=== PATIENT | female | born 1940 | race Caucasian/White ===

== ENCOUNTER 2018-06-24 21:00 | Inpatient (IN) | payer MEDICARE ==
[~2018-06-24] VITALS: Ht 165.1 cm; Wt 67.6 kg
--- NOTE | ~2018-06-24 | DS ---
PATIENT:STEFANIE CROSS :44 MEDICAL RECORD: [id number] DISCHARGE SUMMARY ADMISSION DATE: 06/24/18 DISCHARGE DATE: 07/10/18 HOSPITAL COURSE: The patient is a 77-year-old female who had been living at home with her and because of his inability to take care of her, had transferred her to a [facility] where she spent approximately 1 day and they had gotten so aggressive that a transfer of care was needed here. The patient is alert and oriented times zero. She is very infrequently spoken. She at first was quite resistant to care, especially aggressive secondary to her confusion. As the hospitalization has progressed, the patient has become less aggressive with care. She is still certainly very confused and nursing has noted that she does much better with soft tone and slower redirection, any sudden or abrupt tone changes or orders are not taken as well by this patient secondary to her extreme confusion. On the day of discharge, the patient had been nonaggressive for days. When asked her if she was ready to leave, she did nod her head and looked at me but did not respond otherwise. 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 Her discharge meds include perphenazine 4 mg b.i.d., trazodone 50 mg at bedtime, Megace 625 mg every day, Aricept 5 mg at bedtime, vitamin B12 1000 mg daily, vitamin D 5000 daily, aspirin 81 mg a day, Synthroid 112 mcg a day at 6 a.m. She is being discharged back to [facility] with follow up with their physicians at the facility. Case discussed with nursing. Chart was reviewed and the patient interviewed before discharge. TRANSINT:[id number] Voice Confirmation ID: [id number] DOCUMENT ID: [id number] ADILIA JACOBS MD CC: [id number] DICTATION DATE: 07/10/18 1157 BILLING ASSOCIATE: 07/11/18 0102 DIS IN 07/10/18 [facility] [address] [place] [address]
--- NOTE | ~2018-06-24 | PN ---
PATIENT:STEFANIE JONES MEDICAL RECORD: [id number] LOCATION:[facility] [address] ADMISSION DATE: 06/24/18 PROGRESS NOTE DATE OF SERVICE: 07/09/2018 SUBJECTIVE: Ms. Jones is a 77-year-old female with advanced major neurocognitive disorder, probable Alzheimer's type, who had become aggressive after 1 day in a new facility from home. The patient's behavior at first was consistent with this, but over the course of treatment regimen and her stay here, she has become much less combative, redirectable with ADLs. She has only spoken directly to me once. She does look at me, then generally looks away with any continued attempted interview. Nursing report is similar. They say that she is mainly redirectable, tone is very important in helping her with her ADLs. Plan is to go back to [facility] tomorrow. She slept 7 hours. Did not eat breakfast, but ate 75% lunch and 75% of dinner and last bowel movement on the . OBJECTIVE: LATEST VITAL SIGNS: 98.2, 81, 24, 112/61 and 97%. Her weights have both been at 149. ASSESSMENT: Unchanged. PLAN: Anticipate discharge back to [facility] tomorrow. Discharge orders completed. Case discussed with nursing. Chart was reviewed and the patient interviewed. TRANSINT:[id number] Voice Confirmation ID: [id number] DOCUMENT ID: [id number] ADILIA JACOBS MD CC: [id number] DICTATION DATE: 07/09/18 174 PROGRAM INSTRUCTOR: 07/10/18 0932 ADM IN [place] [id number] [place] [address]
--- NOTE | ~2018-06-24 | PN ---
PATIENT:STEFANIE CROSS MEDICAL RECORD: [id number] LOCATION:[facility] [address] ADMISSION DATE: 06/24/18 PROGRESS NOTE DATE OF SERVICE: 07/03/2018 SUBJECTIVE: The patient's case was discussed with staff. She has no new complaint. OBJECTIVE: The patient is in good behavioral control. She has not been aggressive. She is eating well, but not sleeping very adequately. Unfortunately, her dementia is very advanced. I did start her on some trazodone yesterday and I am going to increase the dose of that today since it was not very helpful. TRANSINT:[id number] Voice Confirmation ID: [id number] DOCUMENT ID: [id number] MARY ZUÑIGA MD CC: [id number] DICTATION DATE: 07/03/18 1526 ORDER DEPARTMENT SUPERVISOR: 07/03/18 193 ADM IN [facility] [address] [place] [address]
--- NOTE | ~2018-06-24 | PN ---
PATIENT:STEFANIE JONES MEDICAL RECORD: [id number] LOCATION:[facility] [address] ADMISSION DATE: 06/24/18 PROGRESS NOTE DATE OF SERVICE: 07/08/2018 SUBJECTIVE: Ms. Jones is a 77-year-old female who had been transferred to a assisted by her secondary to her advanced dementia, but the patient became aggressive and agitated while there. Within a day, she was transferred here. Her basic resistance to care has been declining. She still has very limited interview, did not directly talk to me today, although she did by vision acknowledge my presence. She has not been aggressive or agitated according to social work staff with whom I talked as well as nursing. We are waiting on a return of Francine. The patient slept 6 hours, eating 100, 100, and 75. Last bowel movement was on the 26th. Her vitals are 98.2, 76, 17, 102/60 and pulse ox of 99%. ASSESSMENT: Unchanged. PLAN: Continue current treatment regimen and await for Success and return to nursing facility. Case discussed with nursing. Chart reviewed. The patient interviewed. TRANSINT:[id number] Voice Confirmation ID: [id number] DOCUMENT ID: [id number] ADILIA JACOBS MD CC: [id number] DICTATION DATE: 07/08/18 170 DICTAPHONE OPERATOR: 07/09/18 0025 ADM IN [facility] [address] [place] [id number]
[2018-06-24] MEDS ORDERED: ASPIRIN81 MG PO (22:24)
[2018-06-24] MEDS ORDERED: SYNTHROID100 MCG PO (22:24)
[2018-06-24] MEDS ORDERED: ATIVAN2 MG PO (22:26)
--- NOTE | 2018-06-24 23:55 | NUR ---
NEW ADMIT TO DOCTOR ZUÑIGA ON [facility] FROM [place] FOR AGGRESSION. PATIENT TRANSPORTED TO [facility] VIA EMS ON A STRETCHER. UPON ARRIVAL, PATIENT WAS ANXIOUS, PACING, YELLING, AND EXIT SEEKING. PRN ATIVAN 0.5 MG IM GIVEN FOR ANXIETY. PATIENT REFUSED ADMISSION VS, WEIGHT, AND EKG. PATIENT REPEATEDLY TAKES OFF ARM BANDS. ATTEMPTED TO CALL SPOUSE WITHOUT SUCCESS. MESSAGE LEFT TO RETURN CALL.
--- NOTE | 2018-06-25 03:30 | NUR ---
PATIENT CONTINUES TO BECOME MORE ANXIOUS AND AGITATED. CONTINUES TO PACE, WANDER IN ROOMS OF OTHER PATIENTS, AND EXIT SEEK. PATIENT BECAME COMBATIVE WITH STAFF. UNABLE TO REDIRECT. PRN ATIVAN 0.5 MG IM GIVEN FOR INCREASING ANXIETY AND PRN HALDOL 2 MG IM GIVEN FOR PSYCHOTIC UNSAFE BEHAVIOR.
[2018-06-25 07:43] LABS: BASOPHILS 0.3 % (0-2); EOSINOPHILS 0.9 % (0-7); HEMATOCRIT 40.2 % (36.0-48.0); HEMOGLOBIN 13.4 g/dL (12-16); IMMATURE GRANULOCYTES 0.3 % (0-5); LYMPHOCYTES 20.9 % (15-50); MCH 31.8 pg (26.0-34.0); MCHC 33.3 g/dL (31.0-37.0); MCV 95.5 fL (80.0-100.0); MEAN PLATELET VOLUME 11.5 fL (7.4-10.4); MONOCYTES 13.5 % (2-11); NEUTROPHILS 64.1 % (40-80); PLATELET COUNT 224 10x3/uL (130-400); RBC 4.21 10x6/uL (4.00-5.40); RDW 14.5 % (11.5-14.5); WBC 7.5 10x3/uL (4.8-10.8)
--- NOTE | 2018-06-25 07:45 | NUR ---
PT IS AWAKE AND ALERT TO PERSON. PT WANDERS THE UNIT WITH STAFF SUPERVISION. PT CAN BECOME AGGRESSIVE WITH STAFF WITH REDIRECTION AT TIMES. CALM AND COOPERATIVE WITH ASSESSMENT AT THIS MOMENT. REDIRECT AND REORIENT NEEDED. FALL PRECAUTIONS IN PLACE. WILL CPOC.
[2018-06-25 08:16] LABS: BILIRUBIN - TOTAL 0.53 mg/dL (0.2-1.3); CALCIUM 9.3 mg/dL (8.5-10.1); CARBON DIOXIDE 28.6 mmol/L (21.0-32.0); CHOL - HDL RATIO 2.9 ratio (2.3-4.1); CREATININE - SERUM 0.8 mg/dL (0.6-1.3); LDL-HDL RATIO 1.8 ratio (1.5-3.5); POTASSIUM - SERUM 3.6 mmol/L (3.5-5.1); PROTEIN - SERUM 7.1 g/dL (6.4-8.2); THYROID STIMULATING HORMONE 9.49 uIU/mL (0.36-3.74)
[2018-06-25 08:25] VITALS: BP 98/38
--- NOTE | 2018-06-25 18:00 | NUR ---
PT REMOVED YELLOW COLORED RING AND ALLOWED STAFF TO LOCK UO IN NARC BOX.
[2018-06-25 20:00] VITALS: BP 118/53
--- NOTE | 2018-06-25 20:39 | NUR ---
RECEIVED IN DAYROOM. COMBATIVE. BITING, HITTING, KICKING, AND SCRATCHING STAFF. UNABLE TO BE REDIRECTED. PRN ATIVAN 0.5 MG IM GIVEN FOR ANXIETY AND PRN HALDOL 2 MG IM GIVEN FOR PSYCHOTIC UNSAFE BEHAVIOR. PRN EFFECTIVE. PATIENT CALM AND COOPERATIVE AT THIS TIME. PATIENT RESTING IN BED WITH EYES OPEN. CONTINUE PLAN OF CARE.
[2018-06-25 22:47] VITALS: BP 118/53
[2018-06-26 06:14] LABS: VITAMIN D 25 HYDROXY 25.3 ng/mL (30.0-100.0)
[2018-06-26 07:24] LABS: RAPID PLASMA REAGIN Non Reactive (Non Reactive)
--- NOTE | 2018-06-26 07:46 | NUR ---
REC'D PT SITTING IN CHAIR. RESP EVEN AND NONLABORED. NO ACUTE DISTRESS NOTED. PT DOES NOT SPEAK MUCH TO NURSE. NO BEHAVIORS NOTED AT THIS TIME. CONFUSION NOTED. REDIRECT AND REORIENT NEEDED. WILL CONT TO MONITOR Q 15 MINS FOR SAFETY.
--- NOTE | 2018-06-26 10:02 | NUR ---
SPOKE WITH PT THIS AM. HE INQUIRED IF HE SHOULD VISIT PT FOR VISITATION. NURSE EXPLAINED THE UNIT ASKED FOR SEVERAL DAYS FOR PT TO SETTILE IN BEFORE VISITORS VISIT PT. VOICED UNDERSTANDING OF VISITATION RULES.
[2018-06-26 12:51] VITALS: BP 118/68
--- NOTE | 2018-06-26 14:19 | PSY ---
PATIENT NAME:STEFANIE CROSS MEDICAL RECORD: [id number] : 44 LOCATION:[facility] [address] ADMISSION DATE: 06/24/18 ACCOUNT: [id number] PSYCHIATRIC EVALUATION DATE OF EVALUATION: 06/25/18 IDENTIFYING DATA: The patient is 77 years old and she [facility] on a [facility] basis. CHIEF COMPLAINT: Aggression. HISTORY OF PRESENT ILLNESS: The patient was admitted to the hospital yesterday and that was [facility] the [facility]. She apparently was very agitated, yelling and exit seeking. She also apparently grabbed one of the nurse's aides and bent her thumb back very far. I am not sure if she broke it. She was uncooperative with any kind of assessment at the [facility] and they felt they could not accept her or manage her until these behaviors were addressed. On interview, the patient is polite, cooperative with me, but it is very clear she has an advanced dementia and she is giving me almost nothing in the way of useful information. She denies that she would seek to harm herself or others. She does not know where she is. She is only oriented to person. PAST MEDICAL HISTORY: Significant for hypothyroidism and hyperlipidemia. PAST PSYCHIATRIC HISTORY: Significant for an established diagnosis of dementia, but it is unknown when that diagnosis was made or how or if she has even received any treatment for it. FAMILY HISTORY: Unknown. ALLERGIES: SULFA AND PENICILLIN. CURRENT MEDICATIONS: Include Synthroid and aspirin. SOCIAL HISTORY: The patient has no history of drug, alcohol or tobacco usage. She is and does have adult children who are involved with her care. MENTAL STATUS EXAMINATION: The patient is awake, alert and oriented to person only. Her mood is flat. Her affect is constricted. Thought processes are circumstantial. Memory, concentration, and abstraction abilities are severely impaired and she denies that she would seek to harm herself or others as well as psychotic symptoms. ASSETS: Supportive family members. LIABILITIES: Limited insight. DIAGNOSTIC IMPRESSION: AXIS I: Senile dementia of the Alzheimer's type with behavioral disturbances. AXIS II: None. AXIS III: Hypothyroidism, hyperlipidemia. AXIS IV: Moderate. AXIS V: Global assessment of functioning is 30. PLAN: At this time, the patient is admitted to the hospital secondary to agitated behavior associated with a dementing illness. She will be treated with both mood stabilizing and memory enhancing medications. Her long-term prognosis is guarded. TRANSINT:[id number] Voice Confirmation ID: [id number] DOCUMENT ID: [id number] MARY ZUÑIGA MD at 1419 CC: [id number] DICTATION DATE: 06/25/18 1423 AIRBORNE WE[employer]ONS TECHNICAL MANAGER: 06/25/18 1439 ADM IN [place] [id number] [place] [id number]
[2018-06-26 18:07] LABS: FOLATE (FOLIC ACID) - SERUM 16.3 ng/mL (>3.0)
--- NOTE | 2018-06-26 18:08 | NUR ---
PT WANDERING AT THIS TIME. SAFETY IN VIEW OF STAFF. RESP EVEN AND NONLABORED. NO ACUTE DISTRESS NOTED AT THIS TIME. PT DOES NOT SPEAK ALOT WITH STAFF. PT ATE 100% OF ALL MEALS. MED COMPLIANT. NO COMBATIVE BEHAVIOR NOTED AT THIS TIME. WILL CONT PLAN OF CARE. WILL CONT TO MONITOR Q 15 MINS FOR SAFETY.
[2018-06-26 20:36] VITALS: BP 100/66
--- NOTE | 2018-06-27 03:13 | NUR ---
B) Patient is alert and oriented to self, confused and disoriented, not talking today, I) Administered scheduled medications as ordered, monitored for safety and for needs, encouraged her to speak, R) Medication compliant, difficulty fall asleep, P) Continue plan of care.
--- NOTE | 2018-06-27 05:15 | PN ---
PATIENT:STEFANIE CROSS MEDICAL RECORD: [id number] LOCATION:[facility] [address] ADMISSION DATE: 06/24/18 PROGRESS NOTE DATE OF SERVICE: 06/26/2018 SUBJECTIVE: The patient's case was discussed with staff. She has no new complaint. OBJECTIVE: The patient is nonverbal today. She was quite confused and was giving me virtually no history yesterday. I spoke with one of the staff members about this and she told me that the patient's indicated that she does this from time to time. The patient was agitated last night. She did receive Haldol and Ativan for the agitation. ASSESSMENT: Senile dementia of the Alzheimer's type with behavioral disturbances. PLAN: Current medicines and therapies have been reviewed, both will be maintained. Long-term prognosis is guarded. TRANSINT:[id number] Voice Confirmation ID: [id number] DOCUMENT ID: [id number] MARY ZUÑIGA MD at 0515 CC: [id number] DICTATION DATE: 06/26/18 165 VITAMIN MANAGER: 06/26/[address] [facility] [address] [place] [address]
[2018-06-27 08:01] VITALS: BP 123/66
--- NOTE | 2018-06-27 08:05 | NUR ---
REC'D PT SITTING IN CHAIR WITH EYES OPEN. RESP EVEN AND NONLABORED. NO ACUTE DISTRESS NOTED. PT DOES NOT TALK TO STAFF MUCH. NO AGGRESSIVE BEHAVIOR NOTED AT THIS TIME. PT AMBULATES. CONFUSION NOTED. DOES NOT ANSWER QUESTIONS. REORIENT AND REDIRECT NEEDED. WILL CONT PLAN OF CARE. WILL CONT TO MONITOR Q 15 MINS FOR SAFETY.
[2018-06-27 09:02] VITALS: BP 123/66
--- NOTE | 2018-06-27 17:23 | NUR ---
The patient's spouse called and wanted to know how she is doing and what meds she is on. Let him know she is confuded, not aggressive. Told him she is on Perphenazine and Aricept. He said "Oh, I tried the Arecept a couple of years ago." Asked him how long he tried it. He said "Oh, about a month, it didn't do any good." Explained that the recommendation is six months to a year and then of course if there is no difference then discontinue the medication. He also wanted to know if she needed anything. Let him know that I will look and he can call us back. He said "Does she have anything to sleep in?" Let him know we have hospital gowns and scrubs.
--- NOTE | 2018-06-27 18:06 | NUR ---
PT IS WANDERING. CONFUSION AND DISORIENTED. PT IS HARD TO REDIRECT AT TIMES ATTEMPTING TO HIT AT STAFF DURING REDIRECTION. RESP EVEN AND NONLABORED. NO ACUTE DISTRESS NOTED. PT WILL SIT FOR A MINUTE AND THEN GET UP A WANDER. PT TOOK SOCKS OFF AND REFUSED TO ALLOW STAFF TO REPLACE. REORIENT AND REDIRECT NEEDED. PT 100% OF MEALS. MED COMPLIANT. TOLERATED VITAMINS WELL. WILL CONT PLAN OF CARE. WILL CONT TO MONITOR Q 15 MINS FOR SAFETY.
[2018-06-27 19:24] VITALS: BP 123/57
--- NOTE | 2018-06-27 20:25 | NUR ---
B) Patient is alert and oriented to self, very confused and non verbal, wanders and picks at things on the floor, I) Administered scheduled medications as ordered, monitored for safety, R) Medication compliant, restless, P) Continue plan of care.
--- NOTE | 2018-06-28 07:45 | NUR ---
REC'D PT WANDERING HALLWAY AND PULLING AT DOORS. REDIRECT AND REORIENT NEEDED. PT IS NONVERBAL MOST TIMES. RESP EVEN AND NONLABORED. NO ACUTE DISTRESS NOTED. CONFUSED AND WANDERING. PLESANT WITH STAFF AND PEERS WITH A LARGE SMILE ON HER FACE. WILL CONT PLAN OF CARE. WILL CONT TO MONITOR Q 15 MINS FOR SAFETY.
[2018-06-28 09:02] VITALS: BP 144/80
--- NOTE | 2018-06-28 18:18 | NUR ---
PT WANDERING CONFUSED ALERT AND ORIENTED TO SELF. RESP EVEN AND NONLABORED. NO ACUTE DISTRESS NOTED. NON-VERBAL MOST IF THE TIME. PT DID GIVE NURSE A HUGE HUG AND SMILE THIS MORNING. PT IS EASIER TO REDIRECT. REDIRECT AND REORIENT AT THIS TIME. PT AMBULATES AND WANDERS INTO AREA. PT HAD VISITOR THIS SHIFT. TOELRATED WELL. MED COMPLIANT. UNABLE TO OBTAIN U/A THIS SHIFT. WILL CONT PLAN OF CARE.
--- NOTE | 2018-06-28 18:45 | PN ---
PATIENT:STEFANIE CROSS MEDICAL RECORD: [id number] LOCATION:[facility] [address] ADMISSION DATE: 06/24/18 PROGRESS NOTE DATE OF SERVICE: 06/27/2018 SUBJECTIVE: The patient's case was discussed with staff. She has no new complaint. OBJECTIVE: The patient is severely impaired cognitively and clearly understands little of what is going on around her. She can follow basic directions, but she really does not give any information that is helpful or useful. She is taking her medicines here. I am not sure how well she was taking them before she came here, but she does have an elevated TSH, which needs to be addressed. I am going to leave that to Dr. Goodwin. Her long-term prognosis is guarded. I am going to start her on a low dose of Aricept. TRANSINT:[id number] Voice Confirmation ID: [id number] DOCUMENT ID: [id number] MARY ZUÑIGA MD at 1845 CC: [id number] DICTATION DATE: 06/27/18527 GREEN ENERGY MARKETING ANALYST: 06/27/18 0856 ADM IN [facility] [address] [place] [address]
[2018-06-28 19:27] VITALS: BP 110/89
--- NOTE | 2018-06-28 20:29 | NUR ---
PATIENT IS EXTREMELY CONFUSED, HARD TO REDIRECT, CAN NOT OR DOES NOT MAKE NEEDS KNOWN, WANDERS A LOT, COMPLIANT WITH MEDS, WILL FOLLOW POC
--- NOTE | 2018-06-29 00:10 | NUR ---
PATIENT RECEIVED HALDOL/ATIVAN, PT. STOPPED WANDERING AND STARTED PACING AND MORE ACTIVELY SEEKING EXITS. AGGRESSIVE WITH TECH, HITTING AND SCRATCHING. PICKING UP THE GOWNS FROM NURSES STATION AND SET THEM ON THE FLOOR. COULD NOT REDIRECT. WILL MONITOR
--- NOTE | 2018-06-29 07:45 | NUR ---
REC'D PT SITTING IN HALLWAY WITH PEERS. NO ACUTE DISTRESS NOTED. RESP EVEN AND NONLABORED. CONFUSION NOTED. PT SPEAKS TO STAFF VERY LITTLE. WANDERS AT TIMES. CHAIR ALARM IN PLACE AND ACTIVE. WILL CONT TO MONITOR Q 15 MINS FOR SAFETY. WILL CONT PLAN OF CARE.
[2018-06-29 08:13] VITALS: BP 130/94
[2018-06-29 08:27] VITALS: BP 98/64
--- NOTE | 2018-06-29 09:48 | PN ---
PATIENT:TSEFANIE CROSS MEDICAL RECORD: [id number] LOCATION:[facility] [address] ADMISSION DATE: 06/24/18 PROGRESS NOTE DATE OF SERVICE: 06/28/2018 SUBJECTIVE: The patient's case was discussed with staff. She has no new complaint. OBJECTIVE: The patient is severely impaired cognitively and her dementia is quite advanced. She is minimally participating in activities, although she does follow directions reasonably well. She has not been seriously aggressive, but at times she does become pretty agitated when being redirected. ASSESSMENT: No change in diagnoses. PLAN: Current medicines have been reviewed and will be maintained. The patient has had an increase in her Synthroid since admission and hopefully this will help correct her elevated TSH. TRANSINT:[id number] Voice Confirmation ID: [id number] DOCUMENT ID: [id number] MARY ZUÑIGA MD at 0948 CC: [id number] DICTATION DATE: 06/28/18 185 EMBOSSING TOOL SETTER: 06/29/18 0443 ADM IN [facility] [address] [place] [address]
[2018-06-29 16:31] LABS: COLOR YELLOW (YELLOW)
[2018-06-29 16:32] LABS: APPEARANCE SL CLDY (CLEAR); BILIRUBIN NEGATIVE (NEGATIVE); GLUCOSE NEGATIVE (NEGATIVE); KETONE NEGATIVE (NEGATIVE); NITRITE NEGATIVE (NEGATIVE); PROTEIN NEGATIVE (NEGATIVE); UROBILINOGEN NORMAL (NORMAL)
--- NOTE | 2018-06-29 18:22 | NUR ---
PT WANDERING HALLWAY AT THIS TIME. NO DISTRESS NOTED. RESP EVEN AND NONLABORED. REDIRECT AND REORIENT NEEDED. CONFUSED ALMOST NONVERBAL WITH STAFF AT TIMES. PT HAD SHOWER AND CHANGED CLOTHES WITH NO AGGRESSIVE BEHAVIOR. PT NOT WANDERING MUCH PREVIOUSLY NOTED. MED COMPLIANT. AMBULATES. URINE OBTAINED. RESULTS BACK. PT HAD A VISTOR THIS SHIFT. TOLERATED WELL. WILL CONT PLAN OF CARE.
--- NOTE | 2018-06-29 20:05 | NUR ---
PATIENT IS VERY CONFUSED, HAS TO HAVE A LOT OF REDIRECTION, MEDS CRUSHED, GARBLED SPEECH, COMPLIANT WITH MEDS. WILL FOLLOW POC
[2018-06-29 21:29] VITALS: BP 116/60
[2018-06-30 07:00] VITALS: BP 120/80
--- NOTE | 2018-06-30 07:45 | NUR ---
REC'D PT IN HALLWAY SITTING IN CHAIR BY NURSES STATION WITH PEERS. PT IS VERY QUIET. PT IS ALERT AND ORIENTED TO PERSON ONLY. CALM AND COOPERATIVE WITH ASSESSMENT AT THIS TIME. REDIRECT AND REORIENT NEEDED. NO AGGRESSION NOTED AT THIS TIME. FALL PRECAUTIONS IN PLACE. MED COMPLIANT. WILL CPOC.
[2018-06-30 11:48] LABS: ALBUMIN 3.6 g/dL (3.4-5.0); ALKALINE PHOSPHATASE 54 U/L (46-116); ALT (SGPT) 20 U/L (10-68); BILIRUBIN - TOTAL 0.62 mg/dL (0.2-1.3); CALC OSMOLALITY 283 mosm/kg (275-300); CALCIUM 9.6 mg/dL (8.5-10.1); CHLORIDE - SERUM 106 mmol/L (98-107); CREATININE - SERUM 0.7 mg/dL (0.6-1.3); GLUCOSE 99 mg/dL (74-106); PROTEIN - SERUM 6.8 g/dL (6.4-8.2); SODIUM 142 mmol/L (136-145); UREA NITROGEN 14 mg/dL (7-18); eGFR NON AFRICAN AMERICAN 86 mL/min (90-120)
[2018-06-30 12:34] LABS: BASOPHILS 0.3 % (0-2); EOSINOPHILS 0.6 % (0-7); HEMATOCRIT 40.2 % (36.0-48.0); HEMOGLOBIN 13.5 g/dL (12-16); LYMPHOCYTES 19.2 % (15-50); MCHC 33.6 g/dL (31.0-37.0); MCV 95.3 fL (80.0-100.0); MONOCYTES 10.5 % (2-11); NEUTROPHILS 69.4 % (40-80); PLATELET COUNT 235 10x3/uL (130-400); RBC 4.22 10x6/uL (4.00-5.40); RDW 14.4 % (11.5-14.5); WBC 6.8 10x3/uL (4.8-10.8)
--- NOTE | 2018-06-30 15:33 | PN ---
PATIENT:STEFANIE CROSS MEDICAL RECORD: [id number] LOCATION:[facility] [address] ADMISSION DATE: 06/24/18 PROGRESS NOTE DATE OF SERVICE: 06/29/2018 SUBJECTIVE: The patient's case was discussed with staff. She has no new complaint. OBJECTIVE: The patient is significantly impaired. She did receive some Haldol and Ativan secondary to some agitation last night. Agitation may be a little too strong of a word. She was just not sleeping, was quite restless, and was continuing to escalate. ASSESSMENT: Senile dementia of the Alzheimer's type with behavioral disturbances. PLAN: The patient is significantly impaired. In fact, her dementia is advanced. She is in absolute need of 29-dzve-q-day supervision. Her long-term prognosis is unfortunately exceedingly poor. TRANSINT:[id number] Voice Confirmation ID: [id number] DOCUMENT ID: [id number] MARY ZUÑIGA MD at 1533 CC: [id number] DICTATION DATE: 06/29/18 1025 CARTON MAKING MACHINE OPERATOR: 06/29/18 1718 ADM IN [facility] [address] [place] [address]
[2018-06-30 20:12] VITALS: BP 148/74
--- NOTE | 2018-07-01 04:07 | NUR ---
RECEIVED IN DAYROOM. WALKING AROUND. CALM AND COOPERATIVE WITH CARE AND ASSESSMENT. NO AGGRESSIVE BEHAVIORS. REDIRECT AND REORIENT NEEDED. RESTING IN BED WITH EYES CLOSED AT THIS TIME. CONTINUE PLAN OF CARE.
--- NOTE | 2018-07-01 07:30 | NUR ---
REC'D PT IN HALLWAY SITTING IN CHAIR BY THE NURSES STATION. AWAKE AND ALERT TO PERSON ONLY. PT WANDERS DURING SHIFT. REDIRECT AND REORIENT NEEDED. MED COMPLIANT. NO AGGRESSION NOTED AT THIS TIME. PT IS VERY CONFUSED. CALM AND COOPERATIVE WITH ASSESSMENT. FALL PRECAUTIONS IN PLACE. WILL CPOC.
[2018-07-01 08:24] VITALS: BP 115/66
--- NOTE | 2018-07-01 13:08 | PN ---
PATIENT:STEFANIE CROSS MEDICAL RECORD: [id number] LOCATION:[facility] [address] ADMISSION DATE: 06/24/18 PROGRESS NOTE DATE OF SERVICE: 06/30/2018 SUBJECTIVE: The patient's case was discussed with staff. She has no new complaint. OBJECTIVE: The patient is not eating very well. She is on Megace to stimulate her appetite, but as I have feared this symptom has developed and I think it is entirely consistent with the very advanced dementia she has. Obviously, this is just a day or two where she has not eaten well and she is not significantly underweight, but this is a pattern that could not continue for a long-term. TRANSINT:[id number] Voice Confirmation ID: [id number] DOCUMENT ID: [id number] MARY ZUÑIGA MD at 1308 CC: [id number] DICTATION DATE: 06/30/18 1621 SUPERVISOR BOTTLE MACHINES: 06/30/18 1829 ADM IN [place] [id number] [place] [id number]
--- NOTE | 2018-07-01 16:00 | NUR ---
PT GENE CROSS PRESENT FOR VISITATION. YELLOWED COLORED [place] BAND LOCKED IN NARC BOX SENT HOME WITH . BELONGINGS SHEET SIGNED.
[2018-07-01 18:25] VITALS: Ht 165.1 cm; Wt 67.6 kg
[2018-07-01 20:09] VITALS: BP 131/78
--- NOTE | 2018-07-02 00:30 | NUR ---
RECEIVED IN DAYROOM. SITTING QUIETLY AT TABLE. CALM AND COOPERATIVE WITH CARE AND ASSESSMENT. NO AGGRESSIVE BEHAVIORS. NO EXIT SEEKING BEHAVIORS. REDRIECT AND REORIENT NEEDED. RESTING IN BED WITH EYES CLOSED AT THIS TIME. CONTINUE PLAN OF CARE.
[2018-07-02 09:07] VITALS: BP 128/77
--- NOTE | 2018-07-02 09:55 | NUR ---
Nutrition follow up: Reviewed chart Regular diet with 100% intake of all meals yesterday Ian ordered Weight 149lb RD following
--- NOTE | 2018-07-02 11:18 | NUR ---
PATIENT IS AWAKE AND ALERT TO PERSON ONLY. NON-VERBAL TODAY. CALM AND COOPERATIVE WITH CARE AND ASSESSMENT. REDIRECT AND REORIENT NEEDED. NO AGGRESSION AT THIS TIME. WILLCONTINUE POC.
--- NOTE | 2018-07-02 15:58 | PN ---
PATIENT:STEFANIE CROSS MEDICAL RECORD: [id number] LOCATION:[facility] ADMISSION DATE: 06/24/18 PROGRESS NOTE DATE OF SERVICE: 07/01/2018 SUBJECTIVE: The patient's case was discussed with staff. She has no new complaint. OBJECTIVE: The patient denies intent to harm herself or others. She does tolerate her medicines well. She is not eating very well, but she is taking Megace. She often becomes aggressive with personal care, but otherwise has not been a major management problem. She certainly is an elopement risk and is very much in need of a locked facility. ASSESSMENT: Senile dementia of the Alzheimer's type with behavioral disturbances. PLAN: Current medicines and therapies have been reviewed and will be maintained. Long-term prognosis is guarded. TRANSINT:[id number] Voice Confirmation ID: [id number] DOCUMENT ID: [id number] MARY ZUÑIGA MD at 1558 CC: [id number] DICTATION DATE: 07/01/18 1458 AIRBRUSH ARTIST: 07/01/18 1552 ADM IN [facility] [address] [place] [address]
[2018-07-02 22:17] VITALS: BP 150/74
--- NOTE | 2018-07-03 04:55 | NUR ---
RECEIVED IN HALLWAY OUTSIDE OF NURSES STATION. WANDERING AROUND. VERY CONFUSED. CALM AND COOPERATIVE WITH CARE AND ASSESSMENT. NO AGGRESSIVE BEHAVIORS. REDIRECT AND REORIENT NEEDED. RESTING IN BED WITH EYES CLOSED AT THIS TIME. CONTINUE PLAN OF CARE.
--- NOTE | 2018-07-03 08:12 | NUR ---
The patient had wandered into room 1124 and staff found her in the bed sleeping. She is confused, she has poor insight into her situation. She is not able to state her name.
[2018-07-03 08:20] VITALS: BP 117/63
--- NOTE | 2018-07-03 10:06 | NUR ---
B) The patient is awake and alert, she knows her name, but not place or time. She has not shown any aggresion. She did eat well this am. I) Provide prescribed meds, redirect as needed. R) She is compliant with meds and she mbulates independently. P) Continue POC.
--- NOTE | 2018-07-03 14:08 | PN ---
PATIENT:STEFANIE CROSS MEDICAL RECORD: [id number] LOCATION:[facility] ADMISSION DATE: 06/24/18 PROGRESS NOTE DATE OF SERVICE: 07/02/2018 SUBJECTIVE: The patient's case was discussed with staff. She has no new complaint. OBJECTIVE: The patient denies intent to harm herself or others. She is tolerating her medications well. ASSESSMENT: Senile dementia of the Alzheimer's type with behavioral disturbances. PLAN: The patient is going to be given a low dose of trazodone to assist with sleep consolidation. She will be monitored for clinical changes associated with its use. Her long-term prognosis is guarded. TRANSINT:[id number] Voice Confirmation ID: [id number] DOCUMENT ID: [id number] MARY ZUÑIGA MD at 1408 CC: [id number] DICTATION DATE: 07/02/18 1621 ELECTRIC SERVICEMAN: 07/02/18 2327 ADM IN [place] [id number] [place] [id number]
[2018-07-03 20:03] VITALS: BP 118/49
--- NOTE | 2018-07-04 02:13 | NUR ---
B) Patient is alert and oriented to self, confused and disoriented, calm and cooperative this shift, I) Administered scheduled medications as ordered, monitored for safety, assisted with needs, R) Medication compliant, pleasant and cooperative P) Continue plan of care.
[2018-07-04 09:20] VITALS: BP 110/68
--- NOTE | 2018-07-04 09:59 | NUR ---
B) The patient is awake, she is quiet, she is watchful, and wanders, she has poor insight. She is not speaking and she is flat in affect. She does eat, drink, and ambulate independently. She needs assist with ADL's, she is incontinent with bowel and bladder. I) Provide prescribed meds, redirect as needed to keep her safe. R) The patient is compliant with meds. P) Continue POC.
[2018-07-04 20:10] VITALS: BP 103/57
--- NOTE | 2018-07-05 04:48 | NUR ---
B) Patient is alert and oriented toself, very confused, restless, wandering the hallway all night, I) Administered scheduled medications as ordered, monitored for safety R) Mediation compliant, nonverbal, restless, P) Continue plan of care.
--- NOTE | 2018-07-05 08:51 | NUR ---
B) The patient is restless this morning she is wandering she did not want her V/S taken, she did not want to put on clothes or a depends from the welder 2nd shift, but Gee Mark T was able to assist her with getting dressed and she did not fight with her. The patient is not speaking much, at times she will say one word or word salad. I) Provide prescribed meds. R) The patient takes her meds crushed and put in a shake, pudding, applesauce, or ice cream. She has poor insight into her situation. P) Continue POC.
[2018-07-05 20:07] VITALS: BP 121/60
--- NOTE | 2018-07-05 21:46 | NUR ---
B) patient is alert and oriented to self, very confused, nonverbal, wanders, and tries to pick things off the floor at times, I) Administered scheduled medications as ordered, monitored for safety. R) Mediation compliant, difficult to redirect, P) Continue plan of care.
[2018-07-06 07:00] VITALS: BP 116/59
--- NOTE | 2018-07-06 10:39 | NUR ---
RECEIVED PATIENT IN DINING ROOM FOR B'FAST, ALERT, CALM, CONFUSED, WANDERS ABOUT UNIT. MEDS ADMIN WITH COMPLETE MED COMPLIANCE NOTED. TAKES MEDS WHOLE WITHOUT DIFFICULTY. COOPERATIVE WITH GROUP ACTIVITY AND STAFF REQUESTS. HOWEVER, PT. DOES HAVE DIFFICULTY UNDERSTANDING DIRECTIONS. CONT POC INCLUDING MEDS AND GROUP THERAPY DIRECTED.
--- NOTE | 2018-07-06 11:18 | NUR ---
FREQUENTLY WANDERS ABOUT UNIT.
--- NOTE | 2018-07-06 18:15 | NUR ---
FAMILY VISITED TODAY AND A GOOD VISIT WAS ENJOYED BY BOTH PARTIES.
[2018-07-06 19:59] VITALS: BP 132/67
--- NOTE | 2018-07-06 21:22 | NUR ---
RECEIVED IN DAYROOM. WANDERING AROUND. CONFUSED. CALM AND COOPERATIVE WITH CARE AND ASSESSMENT. NO AGGRESSIVE BEHAVIORS. NO EXIT SEEKING THIS EVENING. REDIRECT AND REORIENT NEEDED. RESTING IN BED WITH EYES CLOSED AT THIS TIME. CONTINUE PLAN OF CARE.
[2018-07-07 08:29] VITALS: BP 120/81
--- NOTE | 2018-07-07 09:00 | NUR ---
PATIENT IS AWAKE, AND ALERT TO NAME ONLY, RESTLESS, NON-VERBAL, AND WANDERS AROUND UNIT. SHE HAS A FLAT AFFECT, AND GETS AGGRESSIVE WITH ADL'S. SHE IS INCONTINENT OF BOWEL AND BLADDER. CALM AND COOPERATIVE WITH CARE AND ASSESSMENT. FALL PRECAUTIONS IN PLACE. REDIRECT AND REORIENT NEEDED. WILL CONTINUE PLAN OF CARE.
--- NOTE | 2018-07-07 22:30 | NUR ---
RECEIVED IN HALLWAY OUTSIDE OF NURSES STATION. WANDERING AROUND. CONFUSED. CALM AND COOPERATIVE WITH CARE AND ASSESSMENT. NO AGGRESSIVE BEHAVIORS. REDIRECT AND REORIENT NEEDED. CONTINUES TO WANDER AROUND AT THIS TIME. CONTINUE PLAN OF CARE.
[2018-07-08 08:00] VITALS: BP 102/60
--- NOTE | 2018-07-08 16:56 | PN ---
PATIENT:STEFANIE JONES MEDICAL RECORD: [id number] LOCATION:[facility] ADMISSION DATE: 06/24/18 PROGRESS NOTE DATE OF SERVICE: 07/04/2018 SUBJECTIVE: Ms. Jones is a 77-year-old female who has been living at home with her and got transferred to the nursing facility and because of aggression within a day was sent to us. The patient has quite advanced major neurocognitive disorder, the fact that apparently her was unaware of. The patient is still intermittently agitated. On my interview, however, she was sitting calmly. She is unable to respond verbally but will look at me and smile briefly. When I asked her, if she was feeling okay, she nodded her head slightly. Again, nursing reports that she is somewhat intermittently agitated with care but less and less so as the days proceed. OBJECTIVE: Her latest vital signs are 97.9, 73, 17, 110/68, and 98%. She slept 6-1/2 hours. She is eating 100%, 85%, and 100% and her last bowel movement was on the . ASSESSMENT: AXIS I: Unchanged. PLAN: Continue current treatment plan, awaiting placement, discharge back to [facility]. Case discussed with nursing. Chart reviewed. The patient interviewed. TRANSINT:[id number] Voice Confirmation ID: [id number] DOCUMENT ID: [id number] ADILIA JACOBS MD at 1656 CC: [id number] DICTATION DATE: 07/04/18 1528 LADDERMAN: 07/05/18 0043 ADM IN [place] [id number] [place] [id number]
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
--- NOTE | 2018-07-08 18:13 | NUR ---
PATIENT IS AWAKE AND ALERT TO SELF. NON-VERBAL, VERY CONUSED, AND WANDERS. PROVIDED PRESCRIBED MEDICATIONS. COMPLIANT TO MEDICATIONS. MONITOR FOR SAFETY. REDIRECT AND REORIENT NEEDED. CONTINUE POC.
[2018-07-08 19:48] VITALS: BP 135/56
--- NOTE | 2018-07-08 21:39 | NUR ---
RECEIVED IN HALLWAY OUTSIDE OF NURSES STATION WALKING ABOUT. CONFUSED. WENT TO BEDROOM WITHOUT ASSIST. REDIRECT AND REORIENT NEEDED. RESTING IN BED WITH EYES CLOSED AT THIS TIME. CONTINUE PLAN OF CARE
[2018-07-09 07:42] VITALS: BP 112/61
--- NOTE | 2018-07-09 08:00 | NUR ---
PATIENT IS AWAKE AND ORIENTED TO SELF ONLY. HAS NO INSIGHT INTO SITUATION. SHE IS VERY CONFUSED AND NON-VERBAL. SHE AMBULATES INDEPENDENTLY AND WANDERS ABOUT THE UNIT, CALM AND COOPERATIVE WITH CARE AND ASSESSMENT. MONITOR FOR SAFETY. WILL CONTINUE POC.
--- NOTE | 2018-07-09 14:31 | NUR ---
Nutrition follow-up: Diet: Regular PO intake 75-100% of meals Labs reviewed Wt: 149# +BM RDN following.
[2018-07-09] MEDS ORDERED: ASPIRIN81 MG PO (17:36)
[2018-07-09] MEDS ORDERED: DONEPEZIL HCL5 MG PO (17:36)
[2018-07-09] MEDS ORDERED: MEGACE ES625 MG/5 M PO (17:37)
[2018-07-09] MEDS ORDERED: PERPHENAZINE2 MG PO (17:37)
[2018-07-09] MEDS ORDERED: SYNTHROID112 MCG PO (17:37)
[2018-07-09] MEDS ORDERED: DESERYL PO (17:37)
[2018-07-09] MEDS ORDERED: VITAMIN B-121000 MCG PO (17:38)
[2018-07-09] MEDS ORDERED: VITAMIN D5000 UNIT PO (17:38)
[2018-07-09 20:00] VITALS: BP 148/75
--- NOTE | 2018-07-09 22:20 | NUR ---
RECEIVED IN HALLWAY OUTSIDE OF NURSES STATION. WANDERING AROUND. CONFUSED. CALM COOPERATIVE WITH CARE AND ASSESSMENT. NO AGGRESSIVE BEHAVIORS. REDIRECT AND REORIENT NEEDED. RESTING WITH EYES OPEN AT THIS TIME. CONTINUE PLAN OF CARE.
[2018-07-10 07:45] VITALS: BP 116/67
--- NOTE | 2018-07-10 09:26 | NUR ---
SW CALLED [phone] AND LEFT VOICEMAIL TO ALERT OF PT DISCHARGING BACK TO [place] ESTIMATED TIME [phone].
--- NOTE | 2018-07-10 11:30 | NUR ---
PATIENT CALM, ALERT, COOPERATIVE, MEDS ADMIN PER ORDERS WITH COMPLETE MED COMPLIANCE NOTED. PERSONAL BELONGINGS RETURNED TO PATIENT. DISCHARGED FROM UNIT IN CARE OF [facility] STAFF. ORDERS FAXED PER S.W.
== END 2018-07-10 11:30 | DRG 57 ==
LOC: D.PSYCH 21:00
PROVIDERS: Family Medicine; ADMIT Psychiatry & Neurology Psychiatry; ATTEND Psychiatry & Neurology Psychiatry
DX: G30.1 Alzheimer's disease with late onset (principal); F02.81 Dementia in other diseases classified elsewhere, unspecified severity, with behavioral disturbance; E03.9 Hypothyroidism, unspecified; E78.5 Hyperlipidemia, unspecified; E53.8 Deficiency of other specified B group vitamins; E55.9 Vitamin D deficiency, unspecified; R63.0 Anorexia; F41.8 Other specified anxiety disorders

== ENCOUNTER 2018-07-11 02:03 | Inpatient (IN) | payer MEDICARE, OTHER ==
[~2018-07-11] VITALS: Ht 167.6 cm; Wt 67.8 kg
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
[~2018-07-11 02:03] MED LIST: ASPIRIN81 MG PO; ATIVAN2 MG PO; DESERYL PO; DONEPEZIL HCL5 MG PO; MEGACE ES625 MG/5 M PO; PERPHENAZINE2 MG PO; SYNTHROID100 MCG PO; SYNTHROID112 MCG PO; VITAMIN B-121000 MCG PO; VITAMIN D5000 UNIT PO
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
[2018-07-11 05:26] VITALS: BP 116/67; BMI 24.8
[2018-07-11 07:34] VITALS: BP 116/61
[2018-07-11 07:46] LABS: BASOPHILS 0.3 % (0-2); EOSINOPHILS 1.1 % (0-7); HEMATOCRIT 35.9 % (36.0-48.0); HEMOGLOBIN 11.9 g/dL (12-16); IMMATURE GRANULOCYTES 0.2 % (0-5); LYMPHOCYTES 29.6 % (15-50); MCH 31.1 pg (26.0-34.0); MCHC 33.1 g/dL (31.0-37.0); MCV 93.7 fL (80.0-100.0); MEAN PLATELET VOLUME 11.2 fL (7.4-10.4); MONOCYTES 15.7 % (2-11); NEUTROPHILS 53.1 % (40-80); PLATELET COUNT 263 10x3/uL (130-400); RBC 3.83 10x6/uL (4.00-5.40); RDW 14.8 % (11.5-14.5); WBC 6.4 10x3/uL (4.8-10.8)
[2018-07-11 08:12] LABS: ALBUMIN 3.3 g/dL (3.4-5.0); ANION GAP 11.4 mmol/L (8-16); BILIRUBIN - TOTAL 0.53 mg/dL (0.2-1.3); CARBON DIOXIDE 25.4 mmol/L (21.0-32.0); CHOL - HDL RATIO 3.6 ratio (2.3-4.1); CREATININE - SERUM 0.8 mg/dL (0.6-1.3); LDL-HDL RATIO 2.4 ratio (1.5-3.5); POTASSIUM - SERUM 3.8 mmol/L (3.5-5.1); THYROID STIMULATING HORMONE 27.61 uIU/mL (0.36-3.74)
--- NOTE | 2018-07-11 10:02 | NUR ---
SW SPOKE TO PT'S , GENE, TO DISCUSS 'S READMISSION AND DISCHARGE PLANNING NEEDS. HER STATED SW CAN DO A REFERRAL TO [facility].
--- NOTE | 2018-07-11 15:19 | NUR ---
The patient is sleepy this am, she is watchful, she has not said anything. She does walk around and she is eating with minimal assist. She has not shown any aggression today. I) Provide prescribed meds. R) The patient is comliant with meds. P) Continue POC.
[2018-07-11 20:00] VITALS: BP 141/81
[2018-07-11 21:56] VITALS: BMI 24.1
--- NOTE | 2018-07-11 22:42 | NUR ---
B) Patient is alert and oriented to self, nonverbal, very confused and wanders I) Administered scheduled medications as ordered, redirected as needed, monitored for safety R) Mediation compliant, resting now in her bed, P) Continue plan of care.
[2018-07-12 07:18] LABS: RAPID PLASMA REAGIN Non Reactive (Non Reactive)
--- NOTE | 2018-07-12 08:00 | NUR ---
B) The patient is awake this am. She has not shown any aggression today. She is quiet. She ambulates independently. I) Provide prescribed meds. R) The patient is compliant with meds. P) Continue POC.
[2018-07-12 08:38] VITALS: BP 108/46
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
[2018-07-12 11:09] LABS: FOLATE (FOLIC ACID) - SERUM 16.1 ng/mL (>3.0)
[2018-07-12 20:21] VITALS: BP 144/64
--- NOTE | 2018-07-13 07:30 | NUR ---
REC'D PT IN HALLWAY WANDERING. PT IS ALERT TO PERSON ONLY. CALM AND COOPERATIVE WITH ASSESSMENT. REDIRECT AND REORIENT NEEDED.MED COMPLIANT. FALL PRECAUTIONS IN PLACE. NO AGGRESSION NOTED. WILL CPOC.
[2018-07-13 08:00] VITALS: BP 130/65
--- NOTE | 2018-07-13 20:53 | NUR ---
RECEIVED IN DAYROOM. SITTING IN CHAIR WITH PEERS AT HER SIDE. NO SIGNS OF AGGRESSION. REDIRECT AND REORIENT NEEDED. CONTINUES TO SIT CALMLY. CONTINUE PLAN OF CARE
[2018-07-13 23:51] VITALS: BP 124/58
--- NOTE | 2018-07-14 07:30 | NUR ---
REC'D PT IN BED WITH EYES OPEN. CALM AND COOPERATIVE WITH ASSESSMENT. NO AGGRESSION NOTED. MED COMPLIANT. REDIRECT AND REORIENT NEEDED. FALL PRECAUTIONS IN PLACE. WILL CPOC.
[2018-07-14 08:00] VITALS: BP 127/92
[2018-07-14 09:51] VITALS: Ht 167.6 cm; Wt 67.8 kg
--- NOTE | 2018-07-14 14:53 | PN ---
PATIENT:STEFANIE CROSS MEDICAL RECORD: [id number] LOCATION:[facility] ADMISSION DATE: 07/11/18 PROGRESS NOTE DATE OF SERVICE: 07/13/2018 SUBJECTIVE: The patient's case was discussed with staff. She has no new complaint. OBJECTIVE: The patient slept reasonably well last night. She is tolerating her current medications well and has not had any significant agitation. ASSESSMENT: Senile dementia of the Alzheimer's type with behavioral disturbances. PLAN: Current medicines have been reviewed and will be maintained. Her long-term prognosis is guarded. TRANSINT:[id number] Voice Confirmation ID: [id number] DOCUMENT ID: [id number] MARY ZUÑIGA MD at 1453 CC: [id number] DICTATION DATE: 07/13/18 1535 CORPORATE STAFF ACCOUNTANT: 07/13/18 1629 ADM IN [place] [id number] [place] [id number]
[2018-07-14 20:06] VITALS: BP 151/65
--- NOTE | 2018-07-15 04:08 | NUR ---
RECEIVED IN DAYROOM. WANDERING AROUND. CALM AND COOPERATIVE WITH CARE AND ASSESSMENT. NO AGGRESSIVE BEHAVIORS. REDIRECT AND REORIENT NEEDED. RESTING IN BED WITH EYES CLOSED AT THIS TIME. CONTINUE PLAN OF CARE.
--- NOTE | 2018-07-15 07:30 | NUR ---
REC'D PT IN HALLWAY PACING. ALERT AND ORIENTED TO PERSON ONLY. CALM AND COOPERATIVE WITH ASSESSMENT. REDIRECT AND REORIENT NEEDED. MED COMPLIANT. NO AGGRESSION NOTED. FALL PRECAUTIONS IN PLACE. WILL CPOC.
[2018-07-15 08:32] VITALS: BP 139/82
--- NOTE | 2018-07-15 15:05 | PN ---
PATIENT:STEFANIE CROSS MEDICAL RECORD: [id number] LOCATION:[facility] ADMISSION DATE: 07/11/18 PROGRESS NOTE DATE OF SERVICE: 07/14/2018 SUBJECTIVE: The patient's case was discussed with staff. She has no new complaint. OBJECTIVE: The patient denies intent to harm herself or others. She is quite confused. She does have an elevated TSH and I have referred this to her primary care physician here to deal with that as deemed appropriate. I do not think it is a major factor in her behavior, but obviously she needs to be euthyroid. I have reviewed her current medicines. I do plan to maintain them and it looks as though she is going to have to go to a different alf, but looks as though [facility] is going to consider her. TRANSINT:[id number] Voice Confirmation ID: [id number] DOCUMENT ID: [id number] MARY ZUÑIGA MD at 1505 CC: [id number] DICTATION DATE: 07/14/18 1510 INSTITUTIONAL AIDE: 07/14/18 1520 ADM IN [facility] [address] [place] [address]
--- NOTE | 2018-07-15 20:45 | NUR ---
RECEIVED IN DAYROOM. SITTING WITH PEERS AT HER SIDE. CALM AND COOPERATIVE WITH CARE AND ASSESSMENT. NO SIGNS OF AGGRESSION. REDIRECT AND REORIENT NEEDED. RESTING IN BED WITH EYES OPEN AT THIS TIME. CONTINUE PLAN OF CARE
--- NOTE | 2018-07-16 08:20 | NUR ---
REC'D PATIENT SITTING IN CHAIR WITH EYES OPEN. RESP EVEN AND NONLABORED. NO ACUTE DISTRESS NOTED. PT IS NONVERBAL WITH STAFF. SPEAKS AT SAME AMOUNTS OF TIME. PT IS HARD TO REDIRECT AT TIMES. MED COMPLIANT. PT WANDERS AT TIMES. WILL CONT PLAN OF CARE.
--- NOTE | 2018-07-16 13:17 | PN ---
PATIENT:STEFANIE CROSS MEDICAL RECORD: [id number] LOCATION:[facility] ADMISSION DATE: 07/11/18 PROGRESS NOTE DATE OF SERVICE: 07/15/2018 PSYCHIATRIC PROGRESS NOTE SUBJECTIVE: The patient's case was discussed with staff. She has no new complaint. OBJECTIVE: The patient is sleeping well and tolerating her medications well. She is also eating adequately. She has not been disruptive in any significant way. I do plan to taper her Trilafon slightly and will reduce it today by one-fourth. TRANSINT:[id number] Voice Confirmation ID: [id number] DOCUMENT ID: [id number] MARY ZUÑIGA MD at 1317 CC: [id number] DICTATION DATE: 07/15/18 1524 SALES ORDER COORDINATOR: 07/15/18 1541 ADM IN [facility] [address] [place] [address]
--- NOTE | 2018-07-16 19:06 | NUR ---
PATIENT SITTING IN RECLINER CARE WITH EYES OPEN. RESP EVEN AND NONLABORED. NO ACUTE DISTRESS NOTED. NO BEHAVIORS NOTED. PT DID HAVE A SHOWER WITH LITTLE COMBATIVENESS. PT IS NONVERBAL WITH STAFF. EATS MEALS AND AMBULATES PER SELF. INCONTIENT. WILL CONT PLAN OF CARE.
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
--- NOTE | 2018-07-17 07:17 | NUR ---
REC'D PT PACING IN HALLWAY. RESP EVEN AND NONLABORED. NO ACUTE DISTRESS NOTED. NONVERBAL WITH STAFF AT TIMES. REDIRECT AND REORIENT NEEDED. MED COMPLIANT AT TIMES. WILL CONT PLAN OF CARE.
[2018-07-17 12:27] VITALS: BP 120/72
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
--- NOTE | 2018-07-17 18:40 | NUR ---
PATIENT SITTING IN CHAIR. RESP EVEN AND NONLABORED. NO ACUTE DISTRESS NOTED. PT NONVERBAL WITH STAFF CAN SPEAK. PT DID BECOME COMBATIVE WITH STAFF DURING PERICARE. VERY HARD TO REDIRECT. VISITOR CAME TODAY. PT AMBULATORY. INCONTIENT. MED COMPLIANT. WILL CONT PLAN OF CARE. WILL CONT TO MONITOR Q 15 MINS FOR SAFETY.
[2018-07-17 23:17] VITALS: BP 130/90
--- NOTE | 2018-07-18 01:14 | NUR ---
B) patient is alert and oriented to self, wanders at times, very confused and nonverbal I) Administered scheduled medications as ordered, monitored for safety R) Mediation compliant, sleeping quietly now, P) Continue plan of care.
--- NOTE | 2018-07-18 08:01 | NUR ---
PATIENT WANDERS KEEPS TO SELF. NONVERBAL WITH STAFF. HARD TO REDIRECT AT TIMES. CONFUSED ORIENTED TO SELF. MED COMPLIANT. WILL CONT PLAN OF CARE, ADMINISTER MEDICATIONS. WILL CONT TO MONITOR Q 15 MINS FOR SAFETY.
[2018-07-18 09:21] VITALS: BP 108/64
--- NOTE | 2018-07-18 12:40 | NUR ---
Nutrition follow-up: Diet: Regular PO intake 100% most meals Labs reviewed Wt: 149# +BM RDN following.
--- NOTE | 2018-07-18 14:15 | PN ---
PATIENT:STEFANIE CROSS MEDICAL RECORD: [id number] LOCATION:[facility] ADMISSION DATE: 07/11/18 PROGRESS NOTE DATE OF SERVICE: 07/16/2018 SUBJECTIVE: The patient's case was discussed with staff. She has no new complaint. OBJECTIVE: The patient ate reasonably well. She has not been aggressive. She has limited insight about her situation. ASSESSMENT: Senile dementia of the Alzheimer's type with behavioral disturbances. PLAN: The patient's Trilafon is going to be reduced to 2 mg twice daily. Her long-term prognosis is guarded. TRANSINT:[id number] Voice Confirmation ID: [id number] DOCUMENT ID: [id number] MARY ZUÑIGA MD at 1415 CC: [id number] DICTATION DATE: 07/16/18 1634 HOG PUSHER: 07/16/18 2201 ADM IN [place] [id number] [place] [id number]
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
--- NOTE | 2018-07-18 18:34 | NUR ---
PATIENT WANDERING AND ATTEMPTING TO OPEN DOORS. CONFUSED AND ORIENTED TO SELF. RESP EVEN AND NONLABORED. PATIENT CAN BE HARD TO REDIRECT AT TIMES. NO DISTRESS NOTED. MED COMPLIANT. EATS ALL MEALS. WILL CONT PLAN OF CARE. WILL CONT TO MONITOR Q 15 MINS FOR SAFETY.
[2018-07-18 20:00] VITALS: BP 100/60
--- NOTE | 2018-07-18 22:29 | NUR ---
PATIENT IS CONFUSED, WANDERS MOST OF THE TIME, VERY HARD TO REDIRECT.COMPLIANT WITH MEDS, DOES NOT VOICE NEEDS OR CONCERNS. WILL FOLLOW POC
--- NOTE | 2018-07-19 07:35 | NUR ---
ASSESSMENT COMPLETE. NON-VERBAL WHEN ASKED QUESTIONS.
[2018-07-19 08:08] VITALS: BP 108/80
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
--- NOTE | 2018-07-19 11:00 | NUR ---
NO CHANGES NOTED AT THIS TIME.
--- NOTE | 2018-07-19 13:00 | NUR ---
SITTING AT TABLE IN DINING ROOM.
--- NOTE | 2018-07-19 15:00 | NUR ---
CONTINUES TO BE NONVERBAL. NO CHANGES NOTED AT THIS TIME.
[2018-07-19 20:00] VITALS: BP 94/49
--- NOTE | 2018-07-20 02:47 | NUR ---
B) Patient is alert and oriented to self, non-verbal, wanders at times, very confused and isolates herself, I) Administered scheduled medications as ordered, redirected as needed, R) Medication compliant, follows simple instructions P) Continue plan of care.
--- NOTE | 2018-07-20 07:15 | NUR ---
PATIENT REFUSED VITAL SIGNS.
--- NOTE | 2018-07-20 09:40 | PN ---
PATIENT:STEFANIE CROSS MEDICAL RECORD: [id number] LOCATION:[facility] ADMISSION DATE: 07/11/18 PROGRESS NOTE DATE OF SERVICE: 07/19/2018 SUBJECTIVE: The patient's case was discussed with staff. She has no new complaint. OBJECTIVE: The patient is sleeping reasonably well. She denies intent to harm herself or others. She is eating well. ASSESSMENT: No change in diagnoses. PLAN: The patient's Trilafon is going to be reduced to 2 mg at bedtime. I think she has shown significant improvement. Her long-term prognosis is guarded. TRANSINT:[id number] Voice Confirmation ID: [id number] DOCUMENT ID: [id number] MARY ZUÑIGA MD at 0940 CC: [id number] DICTATION DATE: 07/19/18 1209 COMMERCIAL DEVELOPMENT MANAGER: 07/19/18 [address] [facility] [address] [place] [address]
--- NOTE | 2018-07-20 12:30 | NUR ---
RECEIVED PATIENT IN DINING ROOM FOR B'FAST, ALERT, AGITATED, NON-VERBAL, AGGRESSIVE AT TIMES WITH CARE. MEDS ADMIN PER ORDERS WITH COMPLETE MED COMPLIANCE NOTED. ISOLATES SELF, NON-VERBAL, TAKES MEDS CRUSHED AND MIXED WITH PUDDING. CONT POC, MONITORING FOR AGGRESSION.
[2018-07-20 20:08] VITALS: BP 113/55
--- NOTE | 2018-07-20 21:05 | NUR ---
RECEIVED IN DAYROOM. SITTING IN A CHAIR WITH PEERS AT HER SIDE. CALM AND COOPERATIVE WITH CARE AND ASSESSMENT. NO SIGNS OF AGGRESSION. REDIRECT AND REORIENT NEEDED. CONTINUES TO REST QUIETLY. CONTINUE PLAN OF CARE.
[2018-07-21 07:00] VITALS: BP 105/64
--- NOTE | 2018-07-21 10:00 | NUR ---
PATIENT IS AWAKE AND ALERT TO SELF ONLY, NON-VERBAL. SHE REFUSED TO TAKE MEDICATIONS THIS AM. SHE REMAINS CALM AND COOPERATIVE MOST OF DAY. SHE WANDERS ABOUT UNIT. REDIRECT AND REORIENTED NEEDED. WILL CPOC.
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
--- NOTE | 2018-07-21 19:57 | NUR ---
RECEIVED IN DAYROOM. SITTING QUIETLY IN CHAIR WITH PEERS BY HER SIDE. CALM AND COOPERATIVE WITH CARE AND ASSESSMENT. NO AGGRESSIVE BEHAVIORS. REDIRECT AND REORIENT NEEDED. CONTINUES TO SIT QUIETLY AT THIS TIME. CONTINUE PLAN OF CARE.
[2018-07-22 02:22] VITALS: BP 140/78
[2018-07-22 08:00] VITALS: BP 121/70
--- NOTE | 2018-07-22 08:00 | NUR ---
PATIENT IS AWAKE AND ALERT TO SELF ONLY. CALM AND COOPERATIVE WITH CARE AND ASSESSMENT. DIFFICULT TO REDIRECT WITH ADL'S. REDIRECT AND REORIENT NEEDED. WILL CONTINUE PLAN OF CARE. WILL CONTINUE PLAN OF CARE.
--- NOTE | 2018-07-22 09:41 | PN ---
PATIENT:STEFANIE CROSS MEDICAL RECORD: [id number] LOCATION:[facility] ADMISSION DATE: 07/11/18 PROGRESS NOTE DATE OF SERVICE: 07/21/2018 SUBJECTIVE: The patient's case was discussed with staff. She has no new complaint. OBJECTIVE: The patient is relatively calm and not significantly disorganized or agitated. She is impaired and does need 93-[id number]-n-day supervision. Fortunately, she can answer questions in a reasonable way. ASSESSMENT: Senile dementia of the Alzheimer's type with behavioral disturbances. PLAN: Current medicines have been reviewed. They will be maintained. Supportive and educational interventions were made. TRANSINT:[id number] Voice Confirmation ID: [id number] DOCUMENT ID: [id number] MARY ZUÑIGA MD at 0941 CC: [id number] DICTATION DATE: 07/21/18 1447 AUTOMATIC SCREWMAKER: 07/21/18 1600 ADM IN [place] [id number] [place] [id number]
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
[2018-07-23 09:00] VITALS: BP 123/67
--- NOTE | 2018-07-23 11:19 | NUR ---
PATIENT IS AWAKE AND ORIENTED TO NAME ONLY, NON-VERBAL. SHE IS NAPPING IN RECLINER IN DAYROOM. CALM AND COOPERATIVE WITH ASSESSMENT AND ADL'S THIS MORNING. COMPLIANT WITH MEDICATIONS. WILL CONTINUE PLAN OF CARE.
--- NOTE | 2018-07-23 12:50 | PN ---
PATIENT:STEFANIE CROSS MEDICAL RECORD: [id number] LOCATION:[facility] ADMISSION DATE: 07/11/18 PROGRESS NOTE DATE OF SERVICE: 07/22/2018 SUBJECTIVE: The patient's case was discussed with staff. She has no new complaint. OBJECTIVE: The patient has been aggressive with staff, but has no recollection of it. She is eating and sleeping well. ASSESSMENT: Senile dementia of the Alzheimer's type with behavioral disturbances. PLAN: The patient will be treated with Geodon at a dose of 20 mg at bedtime. Geodon is being used to treat her underlying agitation. She will be monitored for clinical changes associated with its use. TRANSINT:[id number] Voice Confirmation ID: [id number] DOCUMENT ID: [id number] MARY ZUÑIGA MD at 1250 CC: [id number] DICTATION DATE: 07/22/18 1126 LUMBER CARRIER OPERATOR: 07/22/18 1214 ADM IN [place] [id number] [place] [address]
--- NOTE | 2018-07-23 20:47 | NUR ---
RECEIVED IN DAYROOM. RESTING QUIETLY WITH EYES CLOSED. RESPONDS TO VOICE. CALM AND COOPERATIVE WITH CARE AND ASSESSMENT. NO AGGRESSIVE BEHAVIORS. REDIRECT AND REORIENT NEEDED. CONTINUES TO REST QUIETLY IN CHAIR WITH EYES CLOSED AT THIS TIME. CONTINUE PLAN OF CARE.
--- NOTE | 2018-07-24 09:46 | NUR ---
RECEIVED PATIENT IN DINING ROOM FOR B'FAST, ALERT, CALM, CONFUSED, COOPERATIVE, NON-VERBAL. ISOLATES SELF AWAY FROM GROUP AT TIMES. MEDS ADMIN PER ORDERS WITH COMPLETE MED COMPLIANCE NOTED. COOPERATIVE WITH GROUP AND STAFF. CONT POC INCLUDING MEDS AND GROUP THERAPY DIRECTED.
--- NOTE | 2018-07-24 15:03 | PN ---
PATIENT:STEFANIE CROSS MEDICAL RECORD: [id number] LOCATION:[facility] ADMISSION DATE: 07/11/18 PROGRESS NOTE DATE OF SERVICE: 07/23/2018 SUBJECTIVE: The patient's case was discussed with staff. She has no new complaints. OBJECTIVE: The patient denies intent to harm herself or others. She is tolerating her medicines well. ASSESSMENT: Senile dementia of the Alzheimer's type with behavioral disturbances. PLAN: Brief supportive and educational interventions were made. Long-term prognosis is guarded. TRANSINT:[id number] Voice Confirmation ID: [id number] DOCUMENT ID: [id number] MARY ZUÑIGA MD at 1503 CC: [id number] DICTATION DATE: 07/23/18 1521 CLASSICS PROFESSOR: 07/23/18 2328 ADM IN [facility] [address] [place] [address]
[2018-07-24 20:00] VITALS: BP 101/54
--- NOTE | 2018-07-24 20:40 | NUR ---
RECEIVED IN HALLWAY OUTSIDE OF NURSES STATION. WANDERING AROUND. CALM AND COOPERATIVE WITH CARE AND ASSESSMENT. NO AGGRESSIVE BEHAVIORS. REDIRECT AND REORIENT NEEDED. RESTING IN BED WITH EYES CLOSED AT THIS TIME. CONTINUE PLAN OF CARE.
[2018-07-25 09:26] VITALS: BP 120/54
--- NOTE | 2018-07-25 15:32 | NUR ---
B) The patietn is awake. She is flat to blunted, she is nonverbal, she is watchful. She has poor insight into her situation. She ambulates independently, she does not like to be redirected and does not follow direction well. I) Provide prescribed meds. R) The patient is compliant with meds if crushed and put in a drink or food. P) Continue POC.
[2018-07-25] MEDS ORDERED: DONEPEZIL HCL5 MG PO (15:38)
[2018-07-25] MEDS ORDERED: ASPIRIN81 MG PO (15:38)
[2018-07-25] MEDS ORDERED: DESERYL PO (15:38)
[2018-07-25] MEDS ORDERED: GEODON20 MG PO (15:38)
[2018-07-25] MEDS ORDERED: KLONOPIN0.5 MG PO (15:39)
[2018-07-25] MEDS ORDERED: SYNTHROID125 MCG PO (15:39)
--- NOTE | 2018-07-25 15:39 | NUR ---
Zechariah called to let staff know that [facility] will be picking up the patient in about an hour.
--- NOTE | 2018-07-25 15:53 | PN ---
PATIENT:STEFANIE CROSS MEDICAL RECORD: [id number] LOCATION:[facility] ADMISSION DATE: 07/11/18 PROGRESS NOTE DATE OF SERVICE: 07/24/2018 SUBJECTIVE: The patient's case was discussed with staff. She has no new complaint. OBJECTIVE: The patient is sleeping and eating well. She has not been seriously aggressive for several days. She is tolerating her medications well. ASSESSMENT: Senile dementia of the Alzheimer's type with behavioral disturbances. PLAN: Current medicines and therapies have been reviewed. Both will be maintained. I anticipate she can be transitioned out of the hospital and to the custodial tomorrow if this level of improvement continues. TRANSINT:[id number] Voice Confirmation ID: [id number] DOCUMENT ID: [id number] MARY ZUÑIGA MD at 1553 CC: [id number] DICTATION DATE: 07/24/18 1543 PERSONAL LINES ADVISOR: 07/24/18 1718 ADM IN [facility] [address] [place] [id number]
--- NOTE | 2018-07-25 17:09 | NUR ---
PATIENT HAS BEEN COOPERATIVE THIS SHIFT. ISOLATES HERSELF AWAY FROM GROUP, PREFERRING A QUIET SETTING. MEDS WERE ADMIN PER ORDERS WITH COMPLETE MED COMPLIANCE NOTED. CONT POC UNTIL DISCHARGE.
--- NOTE | 2018-07-26 11:29 | PN ---
PATIENT:STEFANIE CROSS MEDICAL RECORD: [id number] LOCATION:[facility] ADMISSION DATE: 07/11/18 PROGRESS NOTE DATE OF SERVICE: 07/25/2018 SUBJECTIVE: The patient's case was discussed with staff. She has no new complaint. OBJECTIVE: The patient denies intent to harm herself or others. She is tolerating her medicines well. ASSESSMENT: Senile dementia of the Alzheimer's type with behavioral disturbances. PLAN: The patient is going to be transitioned out of the hospital today. She will go to the [facility]. Followup will be with the intermediate physician. TRANSINT:[id number] Voice Confirmation ID: [id number] DOCUMENT ID: [id number] MARY ZUÑIGA MD at 1129 CC: [id number] DICTATION DATE: 07/25/18 172 RETAIL DELIVERY DRIVER: 07/25/18 2145 DIS IN 07/25/18 [place] [id number] [place] [address]
== END 2018-07-25 19:45 | DRG 57 ==
LOC: D.PSYCH 02:03
PROVIDERS: ADMIT Psychiatry & Neurology Psychiatry; ATTEND Psychiatry & Neurology Psychiatry
DX: G30.1 Alzheimer's disease with late onset (principal); F02.81 Dementia in other diseases classified elsewhere, unspecified severity, with behavioral disturbance; E03.9 Hypothyroidism, unspecified; E78.5 Hyperlipidemia, unspecified; F41.8 Other specified anxiety disorders; E55.9 Vitamin D deficiency, unspecified; E53.8 Deficiency of other specified B group vitamins; R63.0 Anorexia; Z68.24 Body mass index [BMI] 24.0-24.9, adult

== ENCOUNTER 2018-09-11 08:14 | Emergency (ER) | payer MEDICARE, OTHER ==
[~2018-09-11] VITALS: Ht 167.6 cm; Wt 72.7 kg
[~2018-09-11 08:14] MED LIST changes: +GEODON20 MG PO; +KLONOPIN0.5 MG PO; +SYNTHROID125 MCG PO
[2018-09-11 08:16] VITALS: Ht 167.6 cm; Wt 72.7 kg
[2018-09-11] MEDS ORDERED: DEPAKOTE125 MG PO (08:25)
[2018-09-11] MEDS ORDERED: ATARAX 25 MG TA25 MG PO (08:26)
[2018-09-11] MEDS ORDERED: MELATONIN 3 MG1 TAB PO (08:26)
[2018-09-11] MEDS ORDERED: LOPRESSOR25 MG PO (08:27)
[2018-09-11 10:09] VITALS: BP 116/58
== END 2018-09-11 10:10 ==
LOC: D.ER 08:14
DX: F03.90 Unspecified dementia, unspecified severity, without behavioral disturbance, psychotic disturbance, mood disturbance, and anxiety (principal); W18.30XA Fall on same level, unspecified, initial encounter; Y93.89 Activity, other specified; Y92.89 Other specified places as the place of occurrence of the external cause

== ENCOUNTER 2018-10-07 19:39 | Emergency (ER) | payer MEDICARE, OTHER ==
[~2018-10-07] VITALS: Ht 167.6 cm; Wt 50.0 kg
[~2018-10-07 19:39] MED LIST changes: +ATARAX 25 MG TA25 MG PO; +DEPAKOTE125 MG PO; +LOPRESSOR25 MG PO; +MELATONIN 3 MG1 TAB PO
[2018-10-07 19:51] VITALS: Ht 167.6 cm; Wt 50.0 kg
[2018-10-07 21:14] LABS: APTT 23.2 SECONDS (22.8-39.4); INR 1.02 (0.85-1.17); PROTIME 12.9 SECONDS (11.6-15.0)
[2018-10-07 21:29] LABS: BASOPHILS 0.3 % (0-2); EOSINOPHILS 0.7 % (0-7); HEMATOCRIT 35.3 % (36.0-48.0); HEMOGLOBIN 11.7 g/dL (12-16); LYMPHOCYTES 16.9 % (15-50); MCH 30.5 pg (26.0-34.0); MCHC 33.1 g/dL (31.0-37.0); MCV 91.9 fL (80.0-100.0); MEAN PLATELET VOLUME 11.2 fL (7.4-10.4); MONOCYTES 14.8 % (2-11); NEUTROPHILS 67.3 % (40-80); RBC 3.84 10x6/uL (4.00-5.40); RDW 14.5 % (11.5-14.5); WBC 6.7 10x3/uL (4.8-10.8)
[2018-10-07 21:30] LABS: PLATELET COUNT 109 10x3/uL (130-400)
[2018-10-07 21:43] LABS: ALBUMIN 3.5 g/dL (3.4-5.0); ALKALINE PHOSPHATASE 48 U/L (46-116); ALT (SGPT) 16 U/L (10-68); CALC OSMOLALITY 292 mosm/kg (275-300); CALCIUM 9.5 mg/dL (8.5-10.1); CARBON DIOXIDE 26.4 mmol/L (21.0-32.0); CHLORIDE - SERUM 108 mmol/L (98-107); CKMB 2.2 U/L (0.0-3.6); CREATINE KINASE 93 UL (21-215); CREATININE - SERUM 1.1 mg/dL (0.6-1.3); GLUCOSE 92 mg/dL (74-106); POTASSIUM - SERUM 3.9 mmol/L (3.5-5.1); PROTEIN - SERUM 6.3 g/dL (6.4-8.2); SODIUM 145 mmol/L (136-145); TROPONIN-I < 0.017 ng/mL (0.000-0.060); UREA NITROGEN 24 mg/dL (7-18); eGFR NON AFRICAN AMERICAN 51 mL/min (90-120)
[2018-10-07 22:32] LABS: APPEARANCE CLEAR (CLEAR); BILIRUBIN NEGATIVE (NEGATIVE); COLOR YELLOW (YELLOW); GLUCOSE NEGATIVE (NEGATIVE); KETONE LARGE mg/dL (NEGATIVE); NITRITE NEGATIVE (NEGATIVE); PROTEIN NEGATIVE (NEGATIVE); UROBILINOGEN NORMAL (NORMAL)
[2018-10-08 01:05] VITALS: BP 109/44
== END 2018-10-08 01:05 ==
LOC: D.ER 19:39
PROVIDERS: Family Medicine
DX: E86.0 Dehydration (principal); I95.9 Hypotension, unspecified

== ENCOUNTER 2018-10-28 17:39 | Emergency (ER) | payer MEDICARE, OTHER ==
[~2018-10-28] VITALS: Ht 167.6 cm; Wt 62.3 kg
[2018-10-28 17:57] VITALS: Ht 167.6 cm; Wt 62.3 kg
[2018-10-28 18:39] LABS: BASOPHILS 0.5 % (0-2); EOSINOPHILS 2.4 % (0-7); HEMATOCRIT 35.7 % (36.0-48.0); HEMOGLOBIN 11.8 g/dL (12-16); IMMATURE GRANULOCYTES 0.3 % (0-5); LYMPHOCYTES 36.6 % (15-50); MCH 30.6 pg (26.0-34.0); MCHC 33.1 g/dL (31.0-37.0); MCV 92.5 fL (80.0-100.0); MEAN PLATELET VOLUME 12.4 fL (7.4-10.4); MONOCYTES 16.3 % (2-11); NEUTROPHILS 43.9 % (40-80); PLATELET COUNT 125 10x3/uL (130-400); RBC 3.86 10x6/uL (4.00-5.40); RDW 14.8 % (11.5-14.5); WBC 3.7 10x3/uL (4.8-10.8)
[2018-10-28 18:46] LABS: APTT 25.8 SECONDS (22.8-39.4); INR 0.99 (0.85-1.17); PROTIME 12.6 SECONDS (11.6-15.0)
[2018-10-28 18:52] LABS: ALBUMIN 3.1 g/dL (3.4-5.0); ANION GAP 12.9 mmol/L (8-16); BILIRUBIN - TOTAL 0.48 mg/dL (0.2-1.3); CALCIUM 8.8 mg/dL (8.5-10.1); CARBON DIOXIDE 26.7 mmol/L (21.0-32.0); CREATININE - SERUM 0.9 mg/dL (0.6-1.3); POTASSIUM - SERUM 3.6 mmol/L (3.5-5.1); PROTEIN - SERUM 5.8 g/dL (6.4-8.2)
[2018-10-28 19:27] LABS: APPEARANCE CLEAR (CLEAR); BILIRUBIN NEGATIVE (NEGATIVE); COLOR YELLOW (YELLOW); GLUCOSE NEGATIVE (NEGATIVE); KETONE LARGE mg/dL (NEGATIVE); NITRITE NEGATIVE (NEGATIVE); PROTEIN 2+ mg/dL (NEGATIVE); SPECIFIC GRAVITY 1.005 (1.005-1.020); UROBILINOGEN NORMAL (NORMAL)
[2018-10-28 19:28] LABS: BACTERIA MODERATE /hpf (NONE SEEN); WAXY CAST 0-5 /lpf (NONE SEEN)
[2018-10-28 19:29] LABS: EPITHELIAL CELLS 0-5 /hpf (0-5); MUCUS >1+ /lpf (NONE SEEN); RED CELLS - URINE 0-5 /hpf (0-5)
[2018-10-28 19:47] VITALS: BP 106/52
== END 2018-10-28 19:48 ==
LOC: D.ER 17:39
PROVIDERS: Family Medicine
DX: S06.6X9A Traumatic subarachnoid hemorrhage with loss of consciousness of unspecified duration, initial encounter (principal); W19.XXXA Unspecified fall, initial encounter; F03.90 Unspecified dementia, unspecified severity, without behavioral disturbance, psychotic disturbance, mood disturbance, and anxiety